=== PATIENT | female | born 1965 | race Caucasian/White ===

== ENCOUNTER 2017-10-12 20:36 | Emergency (ER) | payer MEDICARE ==
[2017-10-12 21:26] VITALS: BP 128/65
--- NOTE | 2017-10-12 22:30 | XRay Report ---
FINAL REPORT EXAM: XR SHOULDER 2+V LT HISTORY: Left shoulder pain TECHNIQUE: 3 views of the left shoulder PRIORS: None. FINDINGS: The glenohumeral and acromioclavicular joints are normally aligned. There is superior and inferior osteophyte formation of the acromioclavicular joint. The bones are normally mineralized. The soft tissues are unremarkable. IMPRESSION: Osteoarthrosis of the acromioclavicular joint
--- NOTE | 2017-10-12 22:42 | XRay Report ---
FINAL REPORT EXAM: XR WRIST 2V LT HISTORY: Left wrist pain TECHNIQUE: Two views of the left wrist PRIORS: None. FINDINGS: There is a subtle linear lucency in the distal ulna near the diaphyseal metaphyseal junction with mild associated cortical buckling. The bones are normally aligned and mineralized. The joint spaces are well-preserved. The soft tissues are unremarkable. IMPRESSION: Question distal ulnar fracture.
== END 2017-10-12 23:00 | disposition left against medical advice (07) ==
LOC: ED 20:36
DX: M25.512 Pain in left shoulder (principal); Z53.21 Procedure and treatment not carried out due to patient leaving prior to being seen by health care provider